=== PATIENT | female | born 1990 | race Caucasian/White ===

== ENCOUNTER 2016-08-14 08:16 | Emergency (ER) | payer OTHER ==
[~2016-08-14 08:16] MED LIST: HYDR-3307 PO
[2016-08-17 17:11] LABS: BLOOD UREA NITROGEN 13 mg/dL (7-18)
[2016-08-17 17:12] LABS: ASPARTATE AMINO TRANSFERASE 23 U/L (15-37)
== END 2016-08-14 11:26 | disposition home or self-care (01) ==
LOC: ED 08:16
DX: K29.00 Acute gastritis without bleeding (principal); R19.7 Diarrhea, unspecified
CPT/HCPCS: 36415; 76700; 80048; 80076; 81001; 82150; 83690; 83735; 84703; 87086; 99285